=== PATIENT | male | born 1945 | race Caucasian/White ===

== ENCOUNTER → 2022-12-02 12:18 | Outpatient (REF) | payer MEDICARE, BC, SELFPAY | LOC: WOUND 12:18 | PROVIDERS: ATTENDING PHYSICIAN Surgery; REFERRING PHYSICIAN Family Medicine | DX: S81.812A Laceration without foreign body, left lower leg, initial encounter (principal); S80.11XA Contusion of right lower leg, initial encounter; L97.223 Non-pressure chronic ulcer of left calf with necrosis of muscle; I89.0 Lymphedema, not elsewhere classified; Z79.01 Long term (current) use of anticoagulants; L12.0 Bullous pemphigoid; Z86.718 Personal history of other venous thrombosis and embolism; Z96.641 Presence of right artificial hip joint; I48.91 Unspecified atrial fibrillation; Z96.652 Presence of left artificial knee joint; I10 Essential (primary) hypertension; R73.01 Impaired fasting glucose; X58.XXXA Exposure to other specified factors, initial encounter | CPT/HCPCS: 11042; 11045; 99204 ==

== ENCOUNTER → 2022-12-11 13:32 | Outpatient (REF) | payer MEDICARE, BC, SELFPAY | LOC: WOUND 13:32 | PROVIDERS: ATTENDING PHYSICIAN Surgery; REFERRING PHYSICIAN Family Medicine | DX: S80.11XS Contusion of right lower leg, sequela (principal); L97.223 Non-pressure chronic ulcer of left calf with necrosis of muscle; S81.812A Laceration without foreign body, left lower leg, initial encounter; I89.0 Lymphedema, not elsewhere classified; Z79.01 Long term (current) use of anticoagulants; L12.0 Bullous pemphigoid; Z86.718 Personal history of other venous thrombosis and embolism; Z96.641 Presence of right artificial hip joint; I48.91 Unspecified atrial fibrillation; Z96.652 Presence of left artificial knee joint; I10 Essential (primary) hypertension; R73.01 Impaired fasting glucose; X58.XXXS Exposure to other specified factors, sequela | CPT/HCPCS: 11042; 11045 ==

== ENCOUNTER → 2023-09-03 13:57 | Outpatient (REF) | payer MEDICARE, BC, SELFPAY | LOC: PAVMRI 13:57 | PROVIDERS: ATTENDING PHYSICIAN Psychiatry & Neurology Neurology | DX: D32.9 Benign neoplasm of meninges, unspecified (principal) | CPT/HCPCS: 70553; A9575 ==

== ENCOUNTER → 2023-09-28 10:51 | Outpatient (REF) | payer MEDICARE, BC, OTHER, SELFPAY ==
--- NOTE | 2023-09-28 12:56 | EEG.RPT ---
Electroencephalogram Report
Recording
Date of EE09/28/23
Type of EEG: Routine
Length of EEG recordin minutes
Done with Video Recording: Yes
Patient Status: Outpatient
Recording Conditions: Awake, Drowsy and Asleep
Hyperventilation Performed: No
Photic Stimulation Performed: Yes
Report
LESS THAN 1 HOUR EEG REPORT
EEG INTERPRETATION:
Unremarkable EEG for age
CLINICAL CORRELATION:
A normal EEG does not rule out a diagnosis of epilepsy. If clinical suspicion for seizure persists, a prolonged recording may be warranted.
Clinical correlation is advised.
METHODS:
A 21 channel digitized electroencephalogram (EEG) was performed in the [facility]. The 10/20 international system of electrode placement was used with ECG and lateral/vertical eye movements recorded. Persyst quantitative EEG
analysis was performed.
ELECTROENCEPHALOGRAPHER IMPRESSION(S):
Quality of study
Good
Background
Unremarkable, well maintained, medium amplitude alpha-frequency and unremarkable anterior-posterior voltage gradient
With eye opening the background activity changed to a low voltage mixture of frequencies.
Sleep
Drowsiness present
Photic Stimulation
Did not activate the record
ECG
Normal sinus rhythm
== END ==
LOC: EEG 10:51
PROVIDERS: ATTENDING PHYSICIAN Psychiatry & Neurology Neurology; FAMILY PHYSICIAN Family Medicine
DX: R40.4 Transient alteration of awareness (principal)
CPT/HCPCS: 95812

== ENCOUNTER → 2023-10-27 09:20 | Outpatient (REF) | payer MEDICARE, BC, SELFPAY | LOC: HWRCS 09:20 | PROVIDERS: ATTENDING PHYSICIAN Internal Medicine Cardiovascular Disease; FAMILY PHYSICIAN Family Medicine | DX: Z01.818 Encounter for other preprocedural examination (principal) | CPT/HCPCS: 93306 ==

== ENCOUNTER → 2023-10-29 07:00 | Outpatient (REF) | payer MEDICARE, BC, SELFPAY ==
[2023-10-29] MEDS: FLUSH (NSS) 1 FLUSH IV (08:40)
[2023-10-29] MEDS: LEXISCAN 0.4 MG IV (08:40)
== END ==
LOC: RCS 07:00
PROVIDERS: ATTENDING PHYSICIAN Internal Medicine Cardiovascular Disease; FAMILY PHYSICIAN Family Medicine
DX: Z01.818 Encounter for other preprocedural examination (principal); I48.0 Paroxysmal atrial fibrillation
CPT/HCPCS: 78452; 93017; A9500; J2785

== ENCOUNTER → 2024-11-30 14:08 | Outpatient (REF) | payer MEDICARE, BC, OTHER, SELFPAY ==
[2024-11-30 16:05] LABS: Blood Urea Nitrogen 28 mg/dl (9-20); Calcium 9.7 mg/dl (8.4-10.2); Carbon Dioxide 31 mmol/L (22-30); Chloride 105 mmol/L (98-107); Glucose 93 mg/dl (70-99); Potassium 3.8 mmol/L (3.5-5.1); Sodium 140 mmol/L (135-145); eGFR > 60.00
== END ==
LOC: REG 14:08
PROVIDERS: ATTENDING PHYSICIAN Surgery Vascular Surgery
DX: I77.4 Celiac artery compression syndrome (principal)
CPT/HCPCS: 36415; 80048

== ENCOUNTER → 2024-12-08 12:30 | Outpatient (REF) | payer MEDICARE, BC, OTHER, SELFPAY | LOC: RAD 12:30 | PROVIDERS: ATTENDING PHYSICIAN Surgery Vascular Surgery; FAMILY PHYSICIAN Family Medicine | DX: I77.4 Celiac artery compression syndrome (principal) | CPT/HCPCS: 74174; Q9967 ==